=== PATIENT | male | born 1940 ===

== ENCOUNTER → 2021-11-30 09:55 | Outpatient (BNVA) | payer MEDICARE, SELFPAY | PROVIDERS: PCP Family Medicine; Visit Provider Psychiatry & Neurology Neurology | DX: F03.90 Unspecified dementia, unspecified severity, without behavioral disturbance, psychotic disturbance, mood disturbance, and anxiety (principal); G93.89 Other specified disorders of brain | CPT/HCPCS: 99212 ==

== ENCOUNTER 2023-06-25 15:40 | Outpatient (AMB) | payer MEDICARE, BC, SELFPAY ==
[2023-06-25 15:55] VITALS: BP 144/68; PULSE 64; BMI 23.1
--- NOTE | 2023-06-25 15:55 | MHC.OFFVIS ---
Intake Vital Signs 06/25/23 15:55 Height 5 ft 8 in Weight 152 lb 1.903 oz BMI 23.1 BP 144/68 H Blood Pressure Location Lt brachial Position Sitting Pulse 64 Intake Visit Reasons: elevated liver enzymes + RIDDHI and elevated femitin Intake Note: Vipin presents in the office as a new patient. CC: He does not have any concerns at this time. states that his labs showed Hep A,B,C were all negative but Dr wanted him to see someone who specializes in the liver. 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 He is accompanied by his who provides most of the history. Pt had routine LFTs checked through his Oncologist's office for which he was referred here. Pt currently has no gastrointestinal complaints to include abd pain, N,V, rashes, change in appetite, bowel habits, or unintentional weight loss. Labs reviewed from 06/13 which showed: AST 65 ALT 94 No previous labs available for comparison. Per referral note RIDDHI was positive 1:320. Pt and do report that he did get a call from Regional Sales Manager office that his AICD had fired off 2 weeks ago, and then later that same week he was also in ER for chest pressure but was discharged after serial trops were fine. They also report that gets followed by Dr Madsen once a year for MGUS but more recently was found to have abnormal blood counts for which more close follow up has been recommended. No new meds, no recent travel. They do not report using any herbal/OTC/CAM. No nsaid use. [facility] Medical History (Updated 06/26/23 @ 09:32 by Candice Rowland MD) Elevated LFTs Calcification of brain GERD (gastroesophageal reflux disease) Gold-Schmid breathing CHF with unknown LVEF CHF (congestive heart failure) Anxiety COMPA on CPAP HTN (hypertension) Surgical History (Updated 06/25/23 @ 15:56 by PATRICIA Sky) Hx of colonoscopy H/O basal cell carcinoma excision H/O removal of cyst Hx of hernia repair Family History Mother HTN (hypertension) Family/Other Alzheimer disease FHx: mental illness Social History Household Members: Spouse Patient Tobacco Use Status: Never used Tobacco Review of Systems Const All systems reviewed & are unremarkable except as noted in HPI and below Physical Exam Vital Signs: Last Vital Signs Pulse 64 06/25/23 15:55 BP 144/68 H 06/25/23 15:55 BMI result Body Mass Index 23.1 Gen appear: Elderly male, undernourished HEENT: nonicteric, no cervical lymphadenopathy Chest: CTA CVS: Regular S1/S2 Abd: soft, nontender hepatomegaly palpable up to 6 cm below costal edge, nondistended, bowel sounds + Ext: no peripheral edema Neuro: A/Ox2, noted to move all extremities spontaneously Psych: interacting appropriately Assessment & Plan Assessment & Plan (1) Elevated LFTs: Code(s): R79.89 - Other specified abnormal findings of blood chemistry (2) Hepatomegaly: Code(s): R16.0 - Hepatomegaly, not elsewhere classified (3) Heart failure with reduced ejection fraction: Code(s): I50.20 - Unspecified systolic (congestive) heart failure Plan Reviewed with the patient and his that will first need to establish whether this was acute or chronic elevation of LFTs and therefore will recheck these. He also has hepatomegaly on exam. Differentials at this time include congestive hepatopathy angelica given underlying CHFrEF versus infiltrative disease such as hemochromatosis, wilsons, amyloidosis, lymphoproliferative disease etc. Unlikely to have new onset of autoimmune hepatitis though drug induced AIH and paraneoplastic not ruled out. Plan: - Labs ordered as below - US Abd - If labs including LFTs normal now, transient elevation of transaminases could possibly have been from the cardiac event reported 2 weeks ago - If remain abnormal, low threshold to pursue dedicated contrasted imaging of liver such as MRI (if tolerated) or triple phased CT angelica given hepatomegaly on exam - Follow up in 3-4 weeks - pt aware that will be following up with a different provider. Orders: Orders HCV RNA QN PROG TO GENOTYPE 06/25/23 R79.89 - Other specified abnormal findings of blood chemistry RIDDHI Reflex Titer and Pattern 06/25/23 - Other specified abnormal findings of blood chemistry Ferritin 06/25/23. - Other specified abnormal findings of blood chemistry IRON PROFILE 06/25/23 - Other specified abnormal findings of blood chemistry Hepatitis A IgG 06/25/23. - Other specified abnormal findings of blood chemistry Hepatitis B Surface Antibody 06/25/23. - Other specified abnormal findings of blood chemistry Hepatitis B Viral DNA Qn 06/25/23. - Other specified abnormal findings of blood chemistry HIV Ab/Ag 06/25/23 - Other specified abnormal findings of blood chemistry Immunoglobulin G 06/25/23. - Other specified abnormal findings of blood chemistry Liver Kidney Microsomal Ab 06/25/23 - Other specified abnormal findings of blood chemistry Mitochondrial Antibody 06/25/23 - Other specified abnormal findings of blood chemistry Prothrombin Time INR 06/25/23 - Other specified abnormal findings of blood chemistry US abdomen complete 06/25/23 - Other specified abnormal findings of blood chemistry Alpha 1 Anti-trypsin 06/25/23 - Other specified abnormal findings of blood chemistry Ceruloplasmin 06/25/23 - Other specified abnormal findings of blood chemistry Complete Blood Count no Diff 06/25/23 - Other specified abnormal findings of blood chemistry Comprehensive Met. Panel 06/25/23 - Other specified abnormal findings of blood chemistry Hepatitis B Core Antibody 06/25/23 - Other specified abnormal findings of blood chemistry Hepatitis B Surface Antigen 06/25/23 - Other specified abnormal findings of blood chemistry Hepatitis C Antibody 06/25/23. - Other specified abnormal findings of blood chemistry Immunoglobulin A 06/25/23. - Other specified abnormal findings of blood chemistry Phosphatidylethanol, Blood 06/25/23 - Other specified abnormal findings of blood chemistry Smooth Muscle Antibody 06/25/23. - Other specified abnormal findings of blood chemistry Transglutaminase IgA 06/25/23 - Other specified abnormal findings of blood chemistry TSH reflex Free T4 06/25/23. - Other specified abnormal findings of blood chemistry Alpha Fetoprotein 11/13/23 R79.89 - Other specified abnormal findings of blood chemistry Coding Level of Care Code New Pt Level 4 (19430) Diagnoses Elevated LFTs R79.89 Hepatomegaly R16.0 Heart failure with reduced ejection fraction I50.20
== END 2023-06-25 16:35 | disposition home or self-care (01) ==
PROVIDERS: PCP Family Medicine; Visit Provider Internal Medicine
DX: R79.89 Other specified abnormal findings of blood chemistry (principal); R16.0 Hepatomegaly, not elsewhere classified; I50.20 Unspecified systolic (congestive) heart failure
CPT/HCPCS: 99204

== ENCOUNTER 2023-06-25 15:40 | Outpatient (REF) | payer MEDICARE, SELFPAY | END 2023-06-25 15:41 | disposition home or self-care (01) | LOC: HO.LAB 15:40 | PROVIDERS: PCP Family Medicine; Visit Provider Internal Medicine | DX: R79.89 Other specified abnormal findings of blood chemistry (principal); R16.0 Hepatomegaly, not elsewhere classified; I50.20 Unspecified systolic (congestive) heart failure | CPT/HCPCS: 99202 ==

== ENCOUNTER 2023-06-26 09:37 | Outpatient (REF) | payer MEDICARE, BC, SELFPAY ==
[2023-06-26 10:17] LABS: Hematocrit 30.9 % (42.0-52.0); Hemoglobin 10.1 g/dl (14.0-18.0); Mean Corpuscular HGB Conc 32.7 g/dl (31.0-36.0); Mean Corpuscular Hemoglobin 33.9 pg (27.0-33.0); Mean Corpuscular Volume 103.7 fL (80.0-98.0); Mean Platelet Volume 9.2 fL (9.4-12.4); Platelet Count 189 X10*3/uL (160-400); Red Blood Count 2.98 X10*6/uL (4.60-5.80); Red Cell Distribution Width 12.2 % (11.0-16.0); White Blood Count 5.3 X10*3/uL (4.8-10.8)
[2023-06-26 10:22] LABS: INTERNATIONAL NORM RATIO 0.9 (0.9-1.1); Prothrombin Time 11.5 SEC (11.1-13.3)
[2023-06-26 11:04] LABS: Alanine Aminotransferase 34 U/L (0-40); Alkaline Phosphatase 64 U/L (39-117); Anion Gap 11 (12-20); Aspartate Amino Transferase 33 U/L (5-37); Bilirubin Total 0.4 mg/dL (0.0-1.0); Blood Urea Nitrogen 31 mg/dL (9-16); Calcium 9.4 mg/dL (8.4-10.2); Carbon Dioxide 28 mmol/L (22-29); Chloride 106 mmol/L (96-108); Estimated Glomerular Filt Rate 47; Glucose Random 142 mg/dL (60-115); Iron 70 mcg/dL (45-160); Percent Iron Saturation 30 % (15-50); Potassium 4.4 mmol/L (3.3-5.1); Sodium 141 mmol/L (135-145); Total Iron Binding Capacity 232 mcg/dL (228-428); Total Protein 6.9 g/dL (6.5-8.0); Unsaturated Iron Binding 162 ug/dL
[2023-06-26 11:15] LABS: Hepatitis A Antibody IgG Nonreactive (Nonreactive); ~Hepatitis A Antibody IgG 0.22 S/CO (0.00-0.99)
[2023-06-26 11:20] LABS: Ferritin 381 ng/mL (20-250); TSH reflex Free T4 1.15 uIU/mL (0.32-4.0)
[2023-06-26 11:22] LABS: HBc Num1 0.07 S/CO (0.00-0.79); HBsAGNum1 0.23 S/CO (0.00-0.99); HIV AB/AG Nonreactive (Nonreactive); HIV Num 1 0.06 S/CO (0.00-0.99); Hepatitis B Core Antibody Nonreactive (Nonreactive); Hepatitis B Surface Antigen Negative (Negative); ~HepC Num1 0.02 S/CO (0.00-0.79); ~Hepatitis B Surface Antibody NONREACTIVE (Nonreactive); ~Hepatitis C Antibody Nonreactive (Nonreactive)
[2023-06-27 17:04] LABS: Hepatitis B Viral DNA Qn - cp NOT DETECTED Log IU/mL (NOT DETECTED); Hepatitis B Viral DNA Qn-IU/mL NOT DETECTED (NOT DETECTED)
[2023-06-28 12:44] LABS: Alpha Fetoprotein 3.2 ng/mL (<6.1)
[2023-06-28 12:54] LABS: Alpha 1 Anti-trypsin 169 mg/dL (83-199); Ceruloplasmin 29 mg/dL (18-36); Immunoglobulin A 140 mg/dL (70-320); Immunoglobulin G 922 mg/dL (600-1540)
[2023-06-28 14:29] LABS: HCV RNA PCR Qn <1.18 NOT DETECTED Log IU/mL (NOT DETECTED); HCV RNA PCR Qn <15 NOT DETECTED IU/mL (NOT DETECTED)
[2023-06-28 20:44] LABS: Transglutaminase IgA <1.0 U/mL
[2023-06-29 15:13] LABS: Mitochondrial Antibodies NEGATIVE (NEGATIVE)
[2023-07-02 12:57] LABS: Anti Nuclear Antibody Screen NEGATIVE (NEGATIVE)
[2023-07-02 23:29] LABS: Smooth Muscle Antibody <20 U (<20)
[2023-07-04 11:21] LABS: Phosphatidylethanol 16:0-18:1 NEGATIVE; Phosphatidylethanol 16:0-18:2 NEGATIVE
[2023-07-04 21:53] LABS: Liver Kidney Microsomal Ab <=20.0 U (<=20.0)
== END 2023-06-26 09:38 | disposition home or self-care (01) ==
LOC: HO.LAB 09:37
PROVIDERS: Visit Provider Internal Medicine
DX: R79.89 Other specified abnormal findings of blood chemistry (principal); Z11.59 Encounter for screening for other viral diseases; Z72.89 Other problems related to lifestyle
CPT/HCPCS: 36415; 80053; 80321; 82103; 82105; 82390; 82728; 82784; 83540; 84443; 85027; 85610; 86015; 86038; 86364; 86376; 86381; 86704; 86706; 86708; 86803; 87340; 87389; 87517; 87522

== ENCOUNTER 2023-07-23 11:42 | Outpatient (AMB) | payer MEDICARE, BC, SELFPAY ==
--- NOTE | 2023-07-23 11:48 | A.OFFVIS_ITS ---
Intake Vital Signs 07/23/23 11:49 Height 5 ft 8 in Weight 152 lb 1.903 oz BMI 23.1 BP 119/66 Blood Pressure Location Lt brachial Position Sitting Pulse 61 Intake Visit Reasons: 4 week follow up Elevated LFTs Intake Note: Vipin presents to in office visit today in follow up of LFTs and labs. CC: Patient's reports that the patient has been c/o back pain for several weeks and she is concerned about his kidneys. US scheduled for Sunday per Pt's . Quality Assurance Project Manager Required: No Accompanied by: Allergies metaxalone [From Metaxall] Allergy (Verified 07/23/23 11:52) Stomach Upset HPI 4 week follow up Elevated LFTs HPI Details LAST VISIT WITH DR. WHALEY Plan Reviewed with the patient and his that will first need to establish whether this was acute or chronic elevation of LFTs and therefore will recheck these. He also has hepatomegaly on exam. Differentials at this time include congestive hepatopathy angelica given underlying CHFrEF versus infiltrative disease such as hemochromatosis, wilsons, amyloidosis, lymphoproliferative disease etc. Unlikely to have new onset of autoimmune hepatitis though drug induced AIH and paraneoplastic not ruled out. Plan: - Labs ordered as below - US Abd - If labs including LFTs normal now, tra nsient elevation of transaminases could possibly have been from the cardiac event reported 2 weeks ago - If remain abnormal, low threshold to p ursue dedicated contrasted imaging of liver such as MRI (if tolerated) or triple phased CT angelica given hepatomegaly on exam - Follow up in 3-4 weeks - pt aware that will be following up with a different provider. TODAY'S VISIT Patient is here today for follow-up previously seen by Dr. Whaley labs were ordered as well as abdominal ultrasound. All labs reviewed with patient and his and they are normal. Liver enzymes also normal. Patient has abdominal ultrasound on Sunday and we will review that as well. Patient denies any abdominal pain or discomfort. Currently has been followed by screw machine set up operator for renal insufficiency. Patient does have history of Congestive heart failure as mentioned above in HPI [facility] Medical History Elevated LFTs Calcification of brain GERD (gastroesophageal reflux disease) Gold-Schmid breathing CHF with unknown LVEF CHF (congestive heart failure) Anxiety COMPA on CPAP HTN (hypertension) Surgical History Hx of colonoscopy H/O basal cell carcinoma excision H/O removal of cyst Hx of hernia repair Family History Mother HTN (hypertension) Family/Other Alzheimer disease FHx: mental illness Social History Household Members: Spouse Patient Tobacco Use Status: Never used Tobacco Review of Systems Const Denies weight gain and Denies weight loss ENT Reports no additional complaints, Denies dysphagia and Denies odynophagia Card Reports no additional complaints Resp Reports no additional complaints GI Denies abdominal pain, Denies belching, Denies melena, Denies bloating, Denies change in bowel habits, Denies dysphagia, Denies excessive flatus, Denies dyspepsia, Denies heartburn, Denies diarrhea, Denies loose stools, Denies nausea, Denies odynophagia and Denies vomiting Reports no additional complaints Musc Reports no additional complaints Neuro Reports no additional complaints Psych Reports no additional complaints Endo Reports no additional complaints Physical Exam Vital Signs: Last Vital Signs Pulse 61 07/23/23 11:49 BP 119/66 07/23/23 11:49 BMI result Body Mass Index 23.1 Const General: healthy appearing, no acute distress and well developed Nutritional Appearance: well nourished Orientation/consciousness: patient oriented x3 HEENT Head: Yes normal to inspection, Yes normocephalic and Yes atraumatic Face and sinus: Yes normal facial exam Mouth: Normal oral and palatal mucosa present Throat: Yes posterior oropharynx normal, Yes tonsils normal and Yes uvula midline Eyes General: appearance normal, both eyes and all related structures Neck Neck: Yes normal visual inspection, Yes full ROM and Yes trachea midline Thyroid: Thyroid normal Resp Effort & Inspection: normal respiratory effort, able to speak in complete sentences, no tracheal deviation and symmetric chest movement Auscultation: clear to auscultation bilaterally Cardio Rate: regular rate GI Inspection: Yes normal to inspection and No distended Palpation (GI): Soft to palpation, not firm, nontender and No hepatosplenomegaly present Auscultation: normal bowel sounds General: Yes no CVA tenderness Back/Spine/Pelvis Back: no CVA tenderness Skin General skin exam: elasticity normal, turgor normal and dry skin Neuro General: patient oriented x3 Psych Appearance: grossly normal Mental Status: mental status grossly normal Results Reviewed Results Reviewed: Laboratory Tests 06/26/23 06/26/23 06/26/23 10:10 10:10 10:10 Iron 70 Ferritin 381 H Total Bilirubin 0.4 AST 33 ALT 34 [id number] 169 Ceruloplasmin 29 Alpha Fetoprotein 3.2 TSH 1.15 Anti-Mitochondrial Ab NEGATIVE Anti-Smooth Muscle Ab <20 Tiss Transglutamin IgA <1.0 PEth 16:0/18.1 (POPEth) NEGATIVE PEth 16:0/18.2 (PLPEth) NEGATIVE Hepatitis A IgG Ab Nonreactive Hep Bs Antigen Hep Bs Antibody Hep B Core Total Ab Hep B DNA copies/mL NOT DETECTED Hep B DNA (IU/mL) NOT DETECTED Hepatitis C Ab (EIA) HCV RNA (PCR) IUs/ml <15 NOT DETECTED HCV RNA PCR log IUs/ml <1.18 NOT DETECTED HIV 1&2 Ab/P24 Ag 4thGn 06/26/23 06/26/23 Unknown Unknown Iron Ferritin Total Bilirubin AST ALT [id number] Ceruloplasmin Alpha Fetoprotein TSH Anti-Mitochondrial Ab Anti-Smooth Muscle Ab Tiss Transglutamin IgA PEth 16:0/18.1 (POPEth) PEth 16:0/18.2 (PLPEth) Hepatitis A IgG Ab Hep Bs Antigen Negative Hep Bs Antibody NONREACTIVE Hep B Core Total Ab Nonreactive Hep B DNA copies/mL Hep B DNA (IU/mL) Hepatitis C Ab (EIA) Nonreactive HCV RNA (PCR) IUs/ml HCV RNA PCR log IUs/ml HIV 1&2 Ab/P24 Ag 4thGn Nonreactive Assessment & Plan Assessment & Plan (1) Elevated LFTs: Code(s): R79.89 - Other specified abnormal findings of blood chemistry (2) GERD (gastroesophageal reflux disease): Code(s): K21.9 - Gastro-esophageal reflux disease without esophagitis Qualifiers: Esophagitis presence: esophagitis presence not specified Qualified Code(s): K21.9 - Gastro-esophageal reflux disease without esophagitis (3) Heart failure with reduced ejection fraction: Code(s): I50.20 - Unspecified systolic (congestive) heart failure Plan All his lab work is essentially negative. Ultrasound is pending. Patient has history of HF on sure which his EF is, his liver enzymes could have been elevated due to congestive hepatopathy versus infiltrative. Ferritin, iron normal. We ruled out autoimmune hepatitis, hepatitis, Driss's. I will review patient's ultrasound and he will follow-up with Dr. Whaley in September. Patient can call the office sooner if he will have any GI concerning symptoms. 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 Ferritin level was normal. Both patient and his are agreeable to plan of care and verbalizes understanding of instructions. They were given the opportunity to ask questions and all questions answered. Thank you for allowing me to participate in his care Coding Level of Care Code Est Pt Level 4 (31469) Diagnoses Elevated LFTs R79.89 Gastroesophageal reflux disease, unspecified whether esophagitis present K21.9 Esophagitis presence: esophagitis presence not specified Heart failure with reduced ejection fraction I50.20 Time Spent (min) 40 Comment 25 minutes spent with patient and additional 15 minutes spent reviewing his records
[2023-07-23 11:49] VITALS: BP 119/66; PULSE 61; BMI 23.1
== END 2023-07-23 13:59 | disposition home or self-care (01) ==
PROVIDERS: PCP Family Medicine; Visit Provider Nurse Practitioner Family
DX: R79.89 Other specified abnormal findings of blood chemistry (principal); K21.9 Gastro-esophageal reflux disease without esophagitis; I50.20 Unspecified systolic (congestive) heart failure
CPT/HCPCS: 99214

== ENCOUNTER → 2023-07-23 11:42 | Outpatient (BNVA) | payer MEDICARE, BC, SELFPAY | PROVIDERS: PCP Family Medicine; Visit Provider Nurse Practitioner Family | DX: K21.9 Gastro-esophageal reflux disease without esophagitis (principal); R79.89 Other specified abnormal findings of blood chemistry; I50.20 Unspecified systolic (congestive) heart failure | CPT/HCPCS: 99212 ==

== ENCOUNTER 2023-07-27 09:49 | Outpatient (REF) | payer MEDICARE, BC, SELFPAY ==
--- NOTE | ~2023-07-27 | US_ITS ---
EXAMINATION: US ABDOMEN COMPLETE CLINICAL INFORMATION: Other specified abnormal findings of blood chemistry. COMPARISON: None available. TECHNIQUE: Real-time imaging of the abdominal viscera. FINDINGS: PANCREAS: Could not be seen as it was obscured by bowel gas. ABDOMINAL AORTA: Difficult to visualize. The mid and distal aorta demonstrate calcific plaque without aneurysm. INFERIOR VENA CAVA: Visualized portions are normal. LIVER: The liver is normal in size. The liver contour is normal. Parenchymal echogenicity is normal. No focal hepatic lesion. There is no intrahepatic biliary duct dilatation seen. GALLBLADDER: The gallbladder is physiologically distended without evidence of stones, sludge, polyps, wall thickening or pericholecystic fluid. COMMON BILE DUCT: Normal in caliber measuring 0.2 cm in diameter. RIGHT KIDNEY: No hydronephrosis. No renal calculi or focal parenchymal lesions. The kidney measures 9.9 cm in maximum dimension. LEFT KIDNEY: No hydronephrosis or renal calculi. The kidney measures 9.4 cm in maximum dimension. A benign 2.7 cm Bosniak class II septated renal cyst is noted which requires no additional imaging or follow up. No solid renal masses are seen. SPLEEN: Normal. The spleen measures 9.2 cm in maximum dimension. FREE FLUID: None. US/US abdomen complete IMPRESSION: No significant abnormality is seen.
== END 2023-07-27 09:50 | disposition home or self-care (01) ==
LOC: HO.US 09:49
PROVIDERS: PCP Family Medicine; Visit Provider Internal Medicine
DX: R79.89 Other specified abnormal findings of blood chemistry (principal)
CPT/HCPCS: 76700